=== PATIENT | male | born 1995 | race Caucasian/White ===

== ENCOUNTER 2021-12-15 14:00 | Emergency (ER) | payer MEDICAID, SELFPAY ==
[2021-12-15 15:01] VITALS: BP 128/96; PULSE 92; RESP 18; TEMP 37.2; O2SAT 99; BMI 24.5
--- NOTE | 2021-12-15 16:26 | ED.DENTAL ---
HPI - Dental/Oral General Chief complaint: Dental/Oral Stated complaint: dental issue Time Seen by Provider: 12/15/21 16:19 Source: patient Mode of arrival: ambulatory Limitations: no limitations History of Present Illness HPI Narrative: 26-year-old male with a past medical history of all his wisdom teeth being extracted last year presenting to the ED with complaints of pain to the aspect where the wisdom teeth were extracted he reports intermittent pain over the past year although worse since a month and worse today. Denies any fevers, chills, dizziness, headaches, neck pain/stiffness, trouble swallowing or breathing, changes in voice, drooling, unable to open his mouth, jaw pain, neck pain or any other symptoms complaints or concerns at this time. MD Complaint: tooth pain Onset (ago): month(s) (1) Duration: constant Severity: moderate Relieving factors: nothing Exacerbating factors: chewing Context: other (See above) Treatment prior to arrival: none Related Data Previous Rx's Medication Instructions Recorded amoxicillin 875 mg-potassium 1 tab PO BID 10 days #20 tabs 12/15/21 clavulanate 125 mg tablet ibuprofen 800 mg tablet 800 mg PO Q8H PRN pain #14 tabs 12/15/21 oxycodone 5 mg tablet 5 mg PO Q6H PRN pain #14 tabs 12/15/21 Allergies Allergy/AdvReac Type Severity Reaction Status Date / Time No Known Allergies Allergy Verified 12/15/21 15:01 [No Known Allergies*] Review of Systems Review of Systems: Constitutional : No Fever, No Chills, No changes in PO intake, No difficulty speaking, no recent dental procedure, no heat or cold intolerance while eating, no recent face trauma, ENT/Mouth : + Dental pain, No Sore throat, No Jaw pain, No throat swelling, No swallowing difficulty, no change in voice, No facial swelling, no drooling, no trismus, no bleeding, no lacerations, no tongue swelling, gum swelling, Eyes: No Eye Pain, No periorbital Swelling Cardiovascular : No Chest Pain, No SOB Respiratory : No Cough, No Sputum, No Wheezing, No Smoke Exposure, No Dyspnea Gastrointestinal : No Nausea, No Vomiting, No Diarrhea Genitourinary : No Dysuria Musculoskeletal : No Myalgias Skin : No rash, no facial swelling or redness, Neuro : No Weakness, No Numbness, No Headache Yes all other systems are reviewed and are negative [facility] Past Medical History Attestation statement: The following information was validated with the patient. Source: old records reviewed and nursing notes reviewed Social History Social History Advance Directives: No Advance Directives Information Provided: No Physical Exam Vital Signs: Vital Signs: Last Vital Signs Temp 99.0 F 12/15/21 15:01 Pulse 92 12/15/21 15:01 Resp 18 12/15/21 15:01 BP 128/96 H 12/15/21 15:01 Pulse Ox 99 12/15/21 15:01 O2 Del Method 12/15/21 15:01 BMI result Body Mass Index 24.5 vital signs have been reviewed as normal and appeared to be correct. Blood pressure normal. Heart rate normal. Respiration rate normal. Temperature normal. Oxygen saturation normal. Appearance: Alert. Oriented X3. No acute distress. Head: Normal external exam. Normocephalic. Atraumatic. Eyes: PERRLA. EOMI. Conjunctiva and sclera normal. Eyelids normal. ENT: EAC normal. TM's Normal. Pharynx normal. Uvula midline. Moist mucous membranes. No trismus noted. No drooling noted. No muffled voice noted. Dentition: Patient with poor dentition throughout and to the wisdom tooth extraction sites patient does have some bony tenderness on although obvious gingival edema/erythema. No signs of infection. Gingival within normal limits. No fluctuance. Not consistent with peritonsillar abscess. Not consistent with dental abscess. No salivary duct obstruction noted. Neck: Normal inspection. Neck supple. FROM. No adenopathy. Thyroid Normal. No meningeal signs. No neck mass noted. Trachea midline. CVS: Normal heart rate and rhythm. Heart sound normal. No murmurs noted. Pulses normal throughout. Respiratory: No respiratory distress. Painless inspiration. Breath sounds normal. No wheezes/rales/rhonchi noted. Chest nontender. No accessory muscle usage noted or decreased air movement noted. Back: Full range of motion noted. Skin: Skin warm and dry. Normal skin color. Normal skin turgor. No rashes/lesions/lacerations noted. Extremities:Extremities exhibit normal range of motion. Extremities nontender. Neuro: Oriented X 3. No motor deficit. No sensory deficit. Reflexes normal. Course Course Course Narrative: Patient most likely pain from the bony growth of the wisdom tooth extraction sites. Will DC home with antibiotics and symptomatic treatment instructions follow-up with oral surgeon. He understands agrees with this plan. [facility] - Dental/Oral Medical Records Attestation: I reviewed the patient's medical records. Discharge Plan Discharge Clinical Impression: Toothache Patient Disposition: Home, Self-Care Instructions: Toothache (ED) Prescriptions: New oxycodone 5 mg tablet 5 mg PO Q6H PRN (Reason: pain) Qty: 14 0RF Rx Instructions: Partial Fill upon patient request. ibuprofen 800 mg tablet 800 mg PO Q8H PRN (Reason: pain) Qty: 14 0RF amoxicillin-pot clavulanate 875-125 mg tablet 1 tab PO BID 10 Days Qty: 20 0RF Referrals: Physician,None [Primary Care Provider] - 1 day (your dentist)
== END 2021-12-15 16:31 | disposition home or self-care (01) ==
PROVIDERS: Emergency Provider Internal Medicine
DX: K08.89 Other specified disorders of teeth and supporting structures (principal); Z79.899 Other long term (current) drug therapy
CPT/HCPCS: 99282; 99283

== ENCOUNTER 2021-12-25 02:16 | Emergency (ER) | payer MEDICAID, SELFPAY ==
[2021-12-25 03:29] VITALS: BP 128/86; PULSE 99; RESP 14; TEMP 37.1; O2SAT 99; BMI 24.5
[2021-12-25] MEDS: Acetaminophen 325 MG TABLET 650 MG PO (05:37)
== END 2021-12-25 05:43 | disposition left against medical advice (07) ==
PROVIDERS: Emergency Provider Emergency Medicine
DX: R68.84 Jaw pain (principal)
CPT/HCPCS: 99282; 99283

== ENCOUNTER 2022-01-02 10:39 | Emergency (ER) | payer MEDICAID, SELFPAY ==
[2022-01-02 10:49] VITALS: BP 130/82; PULSE 86; O2SAT 99
[2022-01-02 10:56] VITALS: BP 148/89; PULSE 100; RESP 17; TEMP 36.6; O2SAT 100; BMI 25.1
== END 2022-01-02 18:36 | disposition left against medical advice (07) ==
PROVIDERS: Emergency Provider Emergency Medicine
DX: K08.89 Other specified disorders of teeth and supporting structures (principal)
CPT/HCPCS: 99281

== ENCOUNTER 2022-01-19 09:06 | Emergency (ER) | payer MEDICAID, SELFPAY ==
[2022-01-19 09:07] VITALS: BP 137/96; PULSE 100; RESP 18; TEMP 36.1; O2SAT 98; BMI 25.1
[2022-01-19 09:51] LABS: Strep A Nucleic Acid Negative (Negative)
--- NOTE | 2022-01-19 10:02 | ED.GENADULT ---
HPI - General Adult General Chief complaint: General Medical Stated complaint: Jaw pain Time Seen by Provider: 01/19/22 09:15 Source: patient Mode of arrival: ambulatory Limitations: no limitations History of Present Illness HPI narrative: 26-year-old male presents to ED for sore throat and also dental pain. Patient states sore throat for couple days without any fever, chills, body aches. Patient states able to drink fluids and solid food. Patient denies any drooling, foul odor of breath, chest pain, shortness of breath, recent dental work, any recent trauma. Patient denies any recent oral sexual activity. Patient states left-sided jaw/dental pain has been constant for the past 1 year since having tooth extracted. Patient states things gum not healing well. Related Data Previous Rx's Medication Instructions Recorded amoxicillin 875 mg-potassium 1 tab PO BID 10 days #20 tabs 12/15/21 clavulanate 125 mg tablet ibuprofen 800 mg tablet 800 mg PO Q8H PRN pain #14 tabs 12/15/21 oxycodone 5 mg tablet 5 mg PO Q6H PRN pain #14 tabs 12/15/21 naproxen 500 mg tablet 500 mg PO BID PRN pain 10 days #20 01/19/22 tabs Allergies Allergy/AdvReac Type Severity Reaction Status Date / Time No Known Allergies Allergy Verified 12/15/21 15:01 [No Known Allergies*] Review of Systems Review of Systems: Sore throat, chronic dental jaw pain Yes all other systems are reviewed and are negative PMFSH Social History Social History Advance Directives: No Advance Directives Information Provided: No Physical Exam ED Vital Signs: Vital Signs - 24 hr 01/19/22 09:07 Temperature 97 F Pulse Rate 100 Respiratory Rate 18 Blood Pressure 137/96 H Pulse Oximetry 98 Oxygen Delivery Method Room Air BMI result Body Mass Index 25.1 Const General: cooperative, healthy appearing, comfortable, no acute distress, well developed, alert, awake and Physically active Orientation/consciousness: oriented to person, oriented to place, oriented to time and patient oriented x3 HENMT Other: Negative for facial swelling. negative for submandibular swelling. Negative for neck swelling. Negative for drooling. Negative for trismus. Negative for foul odor. Negative for gum abscess. Head: Yes normal to inspection, Yes No palpable skull fracture present, Yes normocephalic and Yes atraumatic Teeth and gingiva: dentition normal Throat: Yes posterior oropharynx normal, Yes tonsils normal and Yes uvula midline Neck Neck: Yes normal visual inspection, Yes full ROM, Yes no lymphadenopathy, Yes no meningeal signs, Yes trachea midline, Yes supple, No anterior neck swelling and No tender Chest Chest palpation & inspection: normal inspection of the chest and normal palpation of entire chest wall Resp Effort & Inspection: normal respiratory effort and able to speak in complete sentences Auscultation: clear to auscultation bilaterally Cardio Jugular venous distension: no JVD Heart sounds: S1 normal heart sound present and S2 normal heart sound present GI Inspection: Yes normal to inspection and No abdominal wall ecchymosis Palpation (GI): Soft to palpation, not firm, nontender, no guarding and not rigid General: No CVA tenderness and Yes no CVA tenderness Back/Spine/Pelvis Back: no CVA tenderness, No CVA tenderness and No back tenderness Skin General skin exam: no rashes or lesions noted and elasticity normal Neuro General: oriented to person, oriented to place, oriented to time, patient oriented x3, gait normal, moves all extremities and no meningeal signs Extrem General: Yes normal to inspection and Yes full ROM Psych Appearance: grossly normal, well kempt and not disheveled Course Course Course Narrative: Patient stable. Negative for signs of dental abscess or peritonsillar abscess. Tested for COVID and strep Reevaluation(s) Reevaluation #1: Patient's COVID and strep test came back negative. History physical exam does not indicate Arcenio angina, retropharyngeal abscess, peritonsillar abscess, epiglottitis, trismus, gum abscess, dental abscess, Hodgkin's/non-hodkin's lymphoma, for any emergent life-threatening disease. Patient informed to follow-up with primary care for referral back to oral dental surgeon for proper evaluation of dental pain. Time: 10:26 Medical Decision Making MDM Narrative Medical decision making narrative: Dental pain. Sore throat Lab Data Labs: Lab Results 01/19/22 01/19/22 Range/Units 09:34 09:34 COVID-19 (KRISTAN) Negative (Negative) COVID-19 Clin Com See Note S. pyogenes GrpA ARTURO Negative (Negative) Discharge Plan Discharge Clinical Impression: Chronic dental pain, Sore throat Patient Disposition: Home, Self-Care Instructions: Pharyngitis (ED), Toothache (ED) Additional Instructions: Please follow the primary care provider and Dentist. Return to the ED for facial swelling, neck swelling, drooling, shortness of breath, foul odor, chest pain, fever, chills, inability to tolerate solid food/liquid, headache, dizziness, or any other concerning symptoms. Prescriptions: New naproxen 500 mg tablet 500 mg PO BID PRN (Reason: pain) 10 Days Qty: 20 0RF No Action oxycodone 5 mg tablet 5 mg PO Q6H PRN (Reason: pain) Qty: 14 0RF Rx Instructions: Partial Fill upon patient request. ibuprofen 800 mg tablet 800 mg PO Q8H PRN (Reason: pain) Qty: 14 0RF amoxicillin-pot clavulanate 875-125 mg tablet 1 tab PO BID 10 Days Qty: 20 0RF Stand Alone Forms: Work/School Release Interventions: ED Discharge Assessment Last Done: 01/19/22 10:51 Discharge Date/Time: 01/19/22 10:52 Print Language: Norwegian
[2022-01-19 10:06] LABS: COVID-19 Test Negative (Negative)
== END 2022-01-19 10:52 | disposition home or self-care (01) ==
PROVIDERS: Physician Assistant; Emergency Provider Student in an Organized Health Care Education/Training Program
DX: G89.29 Other chronic pain (principal); K08.89 Other specified disorders of teeth and supporting structures; J02.9 Acute pharyngitis, unspecified; Z20.822 Contact with and (suspected) exposure to COVID-19
CPT/HCPCS: 87635; 87651; 99283

== ENCOUNTER 2022-01-27 16:24 | Emergency (ER) | payer MEDICAID, SELFPAY ==
--- NOTE | ~2022-01-27 | XR_ITS ---
EXAMINATION: XR CHEST CLINICAL INFORMATION: Cough. COMPARISON: 06/30/2016 chest radiographs. TECHNIQUE: Frontal view of the chest was obtained. FINDINGS: No significant abnormality is noted involving the heart, lungs, mediastinum, bony thorax or soft tissues. XR/XR chest 1V IMPRESSION: No acute cardiopulmonary process.
[2022-01-27 16:37] VITALS: BP 119/80; PULSE 86; RESP 18; TEMP 38.1; O2SAT 100; BMI 25.1
[2022-01-27 16:54] LABS: COVID-19 Test Positive (Negative); IDNOW Serial# 16C4AD1C
[2022-01-27 17:05] LABS: Influenza A Negative (Negative); Influenza B2 Negative (Negative)
[2022-01-27 19:02] VITALS: BP 123/86; PULSE 80; RESP 18; TEMP 37.1; O2SAT 100
--- NOTE | 2022-01-27 19:59 | ED.GENADULT ---
HPI - General Adult General Chief complaint: Upper Respiratory Symptoms Stated complaint: body aches, cough,headache, diarrhea, multiple com Time Seen by Provider: 01/27/22 19:31 Source: patient Mode of arrival: ambulatory Limitations: no limitations History of Present Illness HPI narrative: Patient comes to the emergency room complaining of 24 hours of cough, subjective fever and chills. Patient is not immunized for COVID-19. Patient denies abdominal pain, no vomiting or diarrhea, no significant shortness of breath. Related Data Previous Rx's Medication Instructions Recorded amoxicillin 875 mg-potassium 1 tab PO BID 10 days #20 tabs 12/15/21 clavulanate 125 mg tablet ibuprofen 800 mg tablet 800 mg PO Q8H PRN pain #14 tabs 12/15/21 oxycodone 5 mg tablet 5 mg PO Q6H PRN pain #14 tabs 12/15/21 naproxen 500 mg tablet 500 mg PO BID PRN pain 10 days #20 01/19/22 tabs ibuprofen 400 mg tablet 400 mg PO Q6H PRN fever or pain 01/27/22 #20 tabs nirmatrelvir 300 mg (150 mg See Rx Instructions PO .COMPLEX 01/27/22 x2)-ritonavir 100 mg tablet,dose #30 ea pack(EUA) (Paxlovid) Allergies Allergy/AdvReac Type Severity Reaction Status Date / Time No Known Allergies Allergy Verified 12/15/21 15:01 [No Known Allergies*] Review of Systems Review of Systems: Constitutional : No Weight loss, complaining of chills, fatigue and generalized malaise ENT/Mouth : No Hearing loss, No Ear Pain, No Nasal Congestion, No Sinus Pain, No Hoarseness, No sore throat, No Rhinorrhea, No Swallowing Difficulty Eyes: No Eye Pain, No Swelling, No Redness, No Foreign Body, No Discharge, No Vision Changes Cardiovascular : No Chest Pain, No SOB, No Dyspnea on Exertion, No Orthopnea, No Edema, No Palpitations Respiratory : Complaining of dry Cough, No Sputum, No Wheezing, No Smoke Exposure, No Dyspnea Gastrointestinal : No Nausea, No Vomiting, No Diarrhea, No Constipation, No abdominal Pain, No Hematochezia, No Melena Genitourinary : no irregular bleeding, No Dysuria, No Urinary Frequency, No Hematuria, No Urinary Incontinence, No Urgency, No Flank Pain, No Urinary Flow Changes, No Hesitancy Musculoskeletal : No joint pain, No Myalgias, No Joint Swelling Skin : No Skin Lesions, No rash Neuro : No Weakness, No Numbness, No Paresthesias, No Loss of Consciousness, No Dizziness, No Headache Psych : No Anxiety/Panic, No Depression, No SI/HI/AH/VH, No Social Issues, Heme/Lymph: No Bruising, No Bleeding,No Lymphadenopathy Endocrine : No Polyuria, No Polydipsia, No Temperature Intolerance [facility] Social History Social History Advance Directives: No Advance Directives Information Provided: No Physical Exam ED Vital Signs: Vital Signs - 24 hr 01/27/22 16:37 01/27/22 19:02 Temperature 100.5 F H 98.7 F Pulse Rate 86 80 Respiratory Rate 18 18 Blood Pressure 119/80 123/86 Pulse Oximetry 100 100 Oxygen Delivery Method Room Air Room Air BMI result Body Mass Index 25.1 Const Other: Appearance: Alert. Oriented X3. No acute distress. Eyes: Pupils equal, round and reactive to light. ENT: Pharynx normal. Neck: Normal inspection. Neck supple. No lymph nodes noted. No crepitus CVS: Normal heart rate and rhythm. Pulses normal. Normal S1 and S2 Respiratory: No respiratory distress. Breath sounds normal. No Wheezing. No rales Abdomen: Soft and nontender. No rigidity. No distention. Skin: Skin warm and dry. Normal skin color. Normal skin turgor. Extremities: No lower extremity edema. No Lacerations. No Rash Neuro: Oriented X 3. No motor deficit. No sensory deficit. Moving all extremities. No slurred speech. CN 2 through 12 grossly intact Psych: calm, cooperative, normal affect Course Course Course Narrative: Patient's x-ray is negative, patient tested positive for COVID-19. Given the 1st dose of ibuprofen in the emergency room. Patient has no respiratory distress. Patient will be provided with a prescription for Paxlovid Medical Decision Making Lab Data Labs: Lab Results 01/27/22 01/27/22 Range/Units 16:40 16:40 COVID-19 (KRISTAN) Positive A (Negative) COVID-19 Clin Com See Note Influenza Type A (ARTURO) Negative (Negative) Influenza Type B (ARTURO) Negative (Negative) Influenza A & B Note See Note Imaging Data Chest x-ray: Radiologist's impression: INDINGS: No significant abnormality is noted involving the heart, lungs, mediastinum, bony thorax or soft tissues. XR/XR chest 1V IMPRESSION: No acute cardiopulmonary process. Discharge Plan Discharge Clinical Impression: COVID-19 Patient Disposition: Home, Self-Care Instructions: COVID-19 (Coronavirus Disease 2019) (ED) Additional Instructions: Please follow-up with your primary care physician tomorrow. If you have any worsening or new symptoms, please return to the emergency room or call 911 Prescriptions: New Paxlovid (EUA) 300 mg (150 mg x 2)-100 mg tablets,dose pack See Rx Instructions .ROUTE .COMPLEX Qty: 30 0RF Rx Instructions: take TWO 150 mg tablets of nirmatrelvir with ONE 100 mg tablet of ritonavir twice daily for 5 days ibuprofen 400 mg tablet 400 mg PO Q6H PRN (Reason: fever or pain) Qty: 20 0RF No Action oxycodone 5 mg tablet 5 mg PO Q6H PRN (Reason: pain) Qty: 14 0RF Rx Instructions: Partial Fill upon patient request. ibuprofen 800 mg tablet 800 mg PO Q8H PRN (Reason: pain) Qty: 14 0RF amoxicillin-pot clavulanate 875-125 mg tablet 1 tab PO BID 10 Days Qty: 20 0RF naproxen 500 mg tablet 500 mg PO BID PRN (Reason: pain) 10 Days Qty: 20 0RF Stand Alone Forms: Work/School Release
[2022-01-27] MEDS: Ibuprofen 600 MG TABLET PO (20:35)
== END 2022-01-27 20:34 | disposition home or self-care (01) ==
PROVIDERS: Emergency Provider Emergency Medicine
DX: U07.1 COVID-19 (principal); M79.10 Myalgia, unspecified site; R05.9 Cough, unspecified; Z79.899 Other long term (current) drug therapy
CPT/HCPCS: 71045; 87502; 87635; 99283; 99284

== ENCOUNTER 2022-04-20 15:47 | Outpatient (REF) | payer MEDICAID, SELFPAY ==
[2022-04-20 16:19] LABS: COVID-19 Test Positive (Negative); IDNOW Serial# 16C4AD1C
== END 2022-04-20 15:48 | disposition home or self-care (01) ==
LOC: HO.LAB 15:47
PROVIDERS: Visit Provider Internal Medicine
DX: Z20.822 Contact with and (suspected) exposure to COVID-19 (principal)
CPT/HCPCS: 87635; C9803

== ENCOUNTER 2023-01-22 13:00 | Emergency (ER) | payer MEDICAID, SELFPAY ==
--- NOTE | ~2023-01-22 | XR_ITS ---
EXAMINATION: XR SHOULDER, RIGHT CLINICAL INFORMATION: Pain and tingling COMPARISON: None available. TECHNIQUE: Four views of the right shoulder. FINDINGS: No acute visible fracture or dislocation. Joint spaces and alignment are maintained. Soft tissues are unremarkable. Visualized portions of the right chest are unremarkable. XR/XR shoulder RT min 2V IMPRESSION: No acute visible fracture or dislocation.
--- NOTE | 2023-01-22 13:11 | ED_ITS ---
HPI - General Adult General Chief complaint: Extremity Injury, Upper Stated complaint: r shoulder pain numbness finger infection Time Seen by Provider: 01/22/23 15:21 Source: patient Mode of arrival: ambulatory Limitations: no limitations History of Present Illness HPI narrative: Patient comes to the emergency room complaining of right-sided shoulder pain. 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 Patient states that for the last 3 nights, patient has notice that his biceps pain and shoulder pain without any significant history of trauma. Also, patient complaining of pain and erythema around the the left index finger. Related Data Previous Rx's Medication Instructions Recorded amoxicillin 875 mg-potassium 1 tab PO BID 10 days #20 tabs 12/15/21 clavulanate 125 mg tablet ibuprofen 800 mg tablet 800 mg PO Q8H PRN pain #14 tabs 12/15/21 oxycodone 5 mg tablet 5 mg PO Q6H PRN pain #14 tabs 12/15/21 naproxen 500 mg tablet 500 mg PO BID PRN pain 10 days #20 01/19/22 tabs ibuprofen 400 mg tablet 400 mg PO Q6H PRN fever or pain 01/27/22 #20 tabs nirmatrelvir 300 mg (150 mg See Rx Instructions PO .COMPLEX 01/27/22 x2)-ritonavir 100 mg tablet,dose #30 ea pack (Paxlovid) cephalexin 500 mg capsule 500 mg PO BID #14 caps 01/22/23 doxycycline hyclate 100 mg capsule 100 mg PO BID #14 caps 01/22/23 ibuprofen 600 mg tablet 600 mg PO TID PRN fever or pain 01/22/23 #20 tabs Allergies Allergy/AdvReac Type Severity Reaction Status Date / Time No Known Allergies Allergy Verified 01/22/23 13:14 [No Known Allergies*] Review of Systems Review of Systems: Constitutional : No Weight loss, No Fever, No Chills, No Night Sweats, No Fatigue, No Malaise ENT/Mouth : No Hearing loss, No Ear Pain, No Nasal Congestion, No Sinus Pain, No Hoarseness, No sore throat, No Rhinorrhea, No Swallowing Difficulty Eyes: No Eye Pain, No Swelling, No Redness, No Foreign Body, No Discharge, No Vision Changes Cardiovascular : No Chest Pain, No SOB, No Dyspnea on Exertion, No Orthopnea, No Edema, No Palpitations Respiratory : No Cough, No Sputum, No Wheezing, No Smoke Exposure, No Dyspnea Gastrointestinal : No Nausea, No Vomiting, No Diarrhea, No Constipation, No abdominal Pain, No Hematochezia, No Melena Genitourinary : no irregular bleeding, No Dysuria, No Urinary Frequency, No Hematuria, No Urinary Incontinence, No Urgency, No Flank Pain, No Urinary Flow Changes, No Hesitancy Musculoskeletal : Complaining of right shoulder pain, No Myalgias, No Joint Swelling Skin : Complaining of erythema around the index finger of the left hand Neuro : No Weakness, No Numbness, No Paresthesias, No Loss of Consciousness, No Dizziness, No Headache Psych : No Anxiety/Panic, No Depression, No SI/HI/AH/VH, No Social Issues, Heme/Lymph: No Bruising, No Bleeding,No Lymphadenopathy Endocrine : No Polyuria, No Polydipsia, No Temperature Intolerance [facility] Social History Social History Advance Directives: No Advance Directives Information Provided: No Physical Exam ED Vital Signs: Vital Signs - 24 hr 01/22/23 13:12 Temperature 97.7 F Pulse Rate 83 Respiratory Rate 18 Blood Pressure 138/95 H Pulse Oximetry 99 Oxygen Delivery Method Room Air BMI result Body Mass Index 25.5 Const Other: Appearance: Alert. Oriented X3. No acute distress. Eyes: Pupils equal, round and reactive to light. ENT: Pharynx normal. Neck: Normal inspection. Neck supple. No lymph nodes noted. No crepitus CVS: Normal heart rate and rhythm. Pulses normal. Normal S1 and S2 Respiratory: No respiratory distress. Breath sounds normal. No Wheezing. No rales Abdomen: Soft and nontender. No rigidity. No distention. Skin: Skin warm and dry. Normal skin color. Normal skin turgor. Beginning of paronychia in the left index finger, erythema present, no pus present Musculoskeletal: Normal abduction adduction and range of motion of the right shoulder. Normal strength 5/5 in both upper extremities Neuro: Oriented X 3. No motor deficit. No sensory deficit. Moving all extremit ies. No slurred speech. CN 2 through 12 grossly intact Psych: calm, cooperative, normal affect Course Course Course Narrative: This is a rapid medical exam: Additional HPI, ROS, PE not included below will be deferred to primary provider. Patient is a 27-year-old right hand dominant male presenting to the emergency department with complaint of left index finger pain/infection as well as right shoulder pain for 3 days. Complains of tingling to the shoulder. Denies fall or other trauma. 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 Denies fevers. Medical Decision Making Medical Decision Making [facility] Narrative: -my interpretation of shoulder x-ray: Normal alignment, no fracture, no dislocation -I discussed the x-ray with the patient. -it is possible that patient may have carpal tunnel secondary to overuse and repeated use of the right hand. -patient's left index finger, has erythema around the nail bed, early paronychia, no expressible pus. Patient will need antibiotics. Patient agrees with plan Differential Diagnosis Differential Diagnoses: The differential diagnosis associated with the presentation includes (Right shoulder arthritis, tendinitis, bursitis, fracture, dislocation) Discharge Plan Discharge Clinical Impression: Paronychia of finger, Acute shoulder pain Patient Disposition: Home, Self-Care Instructions: Paronychia (ED), Arm Pain (ED) Additional Instructions: Please follow-up with your primary care physician tomorrow. If you have any worsening or new symptoms, please return to the emergency room or call 911 Prescriptions: New cephalexin 500 mg capsule 500 mg PO BID Qty: 14 0RF doxycycline hyclate 100 mg capsule 100 mg PO BID Qty: 14 0RF ibuprofen 600 mg tablet 600 mg PO TID PRN (Reason: fever or pain) Qty: 20 0RF No Action oxycodone 5 mg tablet 5 mg PO Q6H PRN (Reason: pain) Qty: 14 0RF Rx Instructions: Partial Fill upon patient request. ibuprofen 800 mg tablet 800 mg PO Q8H PRN (Reason: pain) Qty: 14 0RF amoxicillin-pot clavulanate 875-125 mg tablet 1 tab PO BID 10 Days Qty: 20 0RF naproxen 500 mg tablet 500 mg PO BID PRN (Reason: pain) 10 Days Qty: 20 0RF Paxlovid 300 mg (150 mg x 2)-100 mg tablets,dose pack See Rx Instructions .ROUTE .COMPLEX Qty: 30 0RF Rx Instructions: take TWO 150 mg tablets of nirmatrelvir with ONE 100 mg tablet of ritonavir twice daily for 5 days ibuprofen 400 mg tablet 400 mg PO Q6H PRN (Reason: fever or pain) Qty: 20 0RF Stand Alone Forms: Work/School Release
[2023-01-22 13:12] VITALS: BP 138/95; PULSE 83; RESP 18; TEMP 36.5; O2SAT 99; BMI 25.5
== END 2023-01-22 15:53 | disposition home or self-care (01) ==
PROVIDERS: Emergency Provider Emergency Medicine
DX: L03.012 Cellulitis of left finger (principal); M25.511 Pain in right shoulder; Z79.899 Other long term (current) drug therapy
CPT/HCPCS: 73030; 99282; 99283; 99284

== ENCOUNTER 2023-01-31 13:24 | Emergency (ER) | payer MEDICAID, SELFPAY ==
[2023-01-31 13:56] VITALS: BP 129/86; PULSE 107; RESP 19; TEMP 36.6; O2SAT 99; BMI 24.1
--- NOTE | 2023-01-31 13:56 | ED_ITS ---
HPI - General Adult General Chief complaint: General Medical Stated complaint: Infected L Index Finger No Injury Time Seen by Provider: 01/31/23 15:38 Source: patient Mode of arrival: ambulatory Limitations: no limitations History of Present Illness HPI narrative: 27-year-old male presents to the ER for evaluation of left 2nd finger infection. He states for the last 2 weeks he has had pain and swelling of the d istal finger and fingernail. He was seen here 2 weeks ago and started, was given empiric antibiotics. He states there was nothing to drain at that time. He completed the course of antibiotics but had worsening symptoms. 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 He states over the last couple of days he developed a yellow hole and swollen area at the base of the fingernail. He reports the redness and pain have increased. No fever or chills. He is able to fully extend and flex the finger. No redness or tenderness of the pulp of the finger. MD complaint: Left 2nd finger infection Onset (ago): week(s) (2) Location: left and upper extremity Radiation: proximal Severity: severe Quality: aching Pain Consistency: constant Relieving factors: immobilization Exacerbating factors: movement Associated symptoms: denies other symptoms Treatments prior to arrival: other (abx) Related Data Previous Rx's Medication Instructions Recorded amoxicillin 875 mg-potassium 1 tab PO BID 10 days #20 tabs 12/15/21 clavulanate 125 mg tablet ibuprofen 800 mg tablet 800 mg PO Q8H PRN pain #14 tabs 12/15/21 oxycodone 5 mg tablet 5 mg PO Q6H PRN pain #14 tabs 12/15/21 naproxen 500 mg tablet 500 mg PO BID PRN pain 10 days #20 01/19/22 tabs ibuprofen 400 mg tablet 400 mg PO Q6H PRN fever or pain 01/27/22 #20 tabs nirmatrelvir 300 mg (150 mg See Rx Instructions PO .COMPLEX 01/27/22 x2)-ritonavir 100 mg tablet,dose #30 ea pack (Paxlovid) cephalexin 500 mg capsule 500 mg PO BID #14 caps 01/22/23 doxycycline hyclate 100 mg capsule 100 mg PO BID #14 caps 01/22/23 ibuprofen 600 mg tablet 600 mg PO TID PRN fever or pain 01/22/23 #20 tabs amoxicillin 875 mg-potassium 1 tab PO BID #14 tabs 01/31/23 clavulanate 125 mg tablet Allergies Allergy/AdvReac Type Severity Reaction Status Date / Time No Known Allergies Allergy Verified 01/31/23 13:56 [No Known Allergies*] Review of Systems Review of Systems: Yes all other systems are reviewed and are negative [facility] Social History Social History Advance Directives: No Advance Directives Information Provided: Yes Physical Exam ED Vital Signs: Vital Signs - 24 hr 01/31/23 13:56 01/31/23 15:39 Temperature 98 F Pulse Rate 107 H 93 Respiratory Rate 19 14 Blood Pressure 129/86 132/83 Pulse Oximetry 99 99 Oxygen Delivery Method Room Air Room Air BMI result Body Mass Index 24.1 Appearance: Alert. Oriented X3. No acute distress. HEENT: normal inspection CVS: Normal heart rate and rhythm. Pulses normal. Respiratory: No respiratory distress. Skin: Skin warm and dry. Normal skin color. Normal skin turgor. No rashes. Extremities: dorsal aspect of the left index finger with moderate swelling of the distal finger around the nail bed with area of yellowish discoloration and fluctuance of the nail bed extending centrally to the lateral cuticle. Full range of motion of the finger. No tenderness or fluctuation of the pulp. Neuro: Oriented X 3. No motor deficit. No sensory deficit. Course Course Course Narrative: RME- 27 year old male presents for evaluation of left index finger pain and swelling. Was given cephalexin and doxycycline a week ago for early paronychia. Will likely need I&D Procedures Abscess I/D Site: hand Side (if applicable): left Technique: incised with blade Sent for culture/gram staining?: No Irrigation: Yes Packing used?: none Medical Decision Making Medical Decision Making MDM Narrative: 27-year-old male presents the ER for evaluation of an infected finger. He exam and clinical presentation are most consistent with an acute paronychia. Area was incised and drained with a moderate amount of yellow purulent material expressed. Patient tolerated the procedure well. A finger was then soaked in a solution of hydrogen peroxide, saline, Betadine. The wound was then dressed with a clean, dry, sterile dressing. He was started on oral antibiotics and wound care was discussed. He is stable for discharge home. Return precautions were discussed. Differential Diagnosis Differential Diagnoses: The differential diagnosis associated with the presentation includes Paronychia, felon, tenosynovitis, cellulitis External Record Review External record reviewed: Prior outpatient labs Tests considered The following testing was considered but not selected: X-ray considered however not indicated given no trauma and no suspicion for deeper infection Prescription Management I considered prescription management with: Pain Medication and Antibiotic Critical Care Time Critical Care Time Critical Care Time: No Discharge Plan Discharge Clinical Impression: Paronychia of finger Qualifiers: Laterality: left Qualified Code(s): L03.012 - Cellulitis of left finger Patient Disposition: Home, Self-Care Instructions: Paronychia (ED) Additional Instructions: Take the prescribed antibiotics as directed, complete the entire course and do not miss any doses Use warm soaks w/ soap 2-3 times per day Keep clean and covered Take motrin and tylenol as needed for pain Prescriptions: New amoxicillin-pot clavulanate 875-125 mg tablet 1 tab PO BID Qty: 14 0RF No Action oxycodone 5 mg tablet 5 mg PO Q6H PRN (Reason: pain) Qty: 14 0RF Rx Instructions: Partial Fill upon patient request. ibuprofen 800 mg tablet 800 mg PO Q8H PRN (Reason: pain) Qty: 14 0RF amoxicillin-pot clavulanate 875-125 mg tablet 1 tab PO BID 10 Days Qty: 20 0RF naproxen 500 mg tablet 500 mg PO BID PRN (Reason: pain) 10 Days Qty: 20 0RF Paxlovid 300 mg (150 mg x 2)-100 mg tablets,dose pack See Rx Instructions .ROUTE .COMPLEX Qty: 30 0RF Rx Instructions: take TWO 150 mg tablets of nirmatrelvir with ONE 100 mg tablet of ritonavir twice daily for 5 days ibuprofen 400 mg tablet 400 mg PO Q6H PRN (Reason: fever or pain) Qty: 20 0RF cephalexin 500 mg capsule 500 mg PO BID Qty: 14 0RF doxycycline hyclate 100 mg capsule 100 mg PO BID Qty: 14 0RF ibuprofen 600 mg tablet 600 mg PO TID PRN (Reason: fever or pain) Qty: 20 0RF Referrals: [facility] [Primary Care Provider] - Stand Alone Forms: Work/School Release Interventions: ED Discharge Assessment Last Done: 01/31/23 16:57 Discharge Date/Time: 01/31/23 16:58
[2023-01-31 15:39] VITALS: BP 132/83; PULSE 93; RESP 14; O2SAT 99
== END 2023-01-31 16:58 | disposition home or self-care (01) ==
PROVIDERS: Emergency Provider Internal Medicine
DX: L03.012 Cellulitis of left finger (principal)
CPT/HCPCS: 26010; 99283

== ENCOUNTER 2023-06-01 17:38 | Outpatient (REF) | payer MEDICAID, SELFPAY | END 2023-06-01 17:39 | disposition home or self-care (01) | LOC: HO.HHCLNP 17:38 | PROVIDERS: Visit Provider Emergency Medicine | DX: L03.011 Cellulitis of right finger (principal) | CPT/HCPCS: 87070; 87077; 87186; 87205 ==

== ENCOUNTER 2023-08-01 15:00 | Outpatient (REF) | payer MEDICAID, SELFPAY | END 2023-08-01 15:01 | disposition home or self-care (01) | LOC: HO.HHCLNP 15:00 | PROVIDERS: Visit Provider Family Medicine | DX: L03.011 Cellulitis of right finger (principal) | CPT/HCPCS: 87070; 87077; 87186; 87205 ==